=== PATIENT | female | born 1945 | race Caucasian/White ===

== ENCOUNTER 2016-08-08 11:09 | Observation (INO) | payer MEDICARE, OTHER ==
[2016-08-08] MEDS ORDERED: diphenhydrAMINE HCL 50 MG/ML VIAL IM ONE (11:17)
[2016-08-08] MEDS ORDERED: RACEPINEPHRINE HCL 0.5 ML VIAL IH ONE ×2 (11:17)
[2016-08-08] MEDS ORDERED: METHYLPREDNISOLONE SOD SUCC/PF 125 MG/2 ML VIAL IM ONE (11:17)
[2016-08-08] MEDS ORDERED: FAMOTIDINE 10 MG/ML VIAL IV ONE ×4 (11:24→14:06)
--- NOTE | 2016-08-08 11:29 | ERNOTE ---
Allergy Symptoms - ER Date of Service: 08/08/16 Presenting Symptoms: face swelling, skin rash Time Seen by Provider: 08/08/16 11:22 Source: patient Exam Limitations: no limitations Immunizations: IMMUNIZATION HX Immunizations Up to Date No History of Influenza Vaccine No Hx Pneumococcal Vaccination No Allergies/Adverse Reactions: Allergies peanut Allergy (Verified 08/08/16 11:21) Home Medications: HOME MEDICATIONS Metoprolol Succinate 25 mg PO DAILY 08/08/16 [Last Taken Unknown] Triamterene/Hydrochlorothiazid [Triamterene-Hctz 50-25 mg Cap] 0.5 tab PO DAILY 08/08/16 [Last Taken Unknown] - History of Present Illness Narrative: Pt. comes in with c/o lip swelling and hives. Pt. states that she ate peanut butter just prior to arrival. Pt. denies any SOB at this time or chest pain. Pt. denies any chest pain or nausea at this time. Pt. denies any recent illness. Pt. denies any reaction to anything previously. Review of Systems - Review of Systems Constitutional: Present: no symptoms reported. Absent: fever, chills, weakness , fatigue, malaise EYE: Present: no symptoms reported ENT: Present: no symptoms reported Respiratory: Present: no symptoms reported. Absent: shortness of breath, cough , wheezing Cardiology: Present: no symptoms reported. Absent: chest pain, palpitations, edema Gastrointestinal/Abdominal: Present: no symptoms reported. Absent: nausea, vomiting, diarrhea Genitourinary: Present: no symptoms reported Musculoskeletal: Present: no symptoms reported. Absent: back pain, joint pain Skin: Present: no symptoms reported. Absent: rash, change in color Neurological: Present: no symptoms reported. Absent: headache, dizziness/light- headedness, numbness, tingling All Other Systems: All systems neg except as marked - Patient's Past Medical History Patient History - Medical: Diabetes Type 2 Patient History - Cardiac/Respiratory: Hypertension, Hyperlipidemia Patient History - Cancer: No Hx of Cancer Patient History - Surgical Procedures: No surgical history Patient History - Other: None - Social History Living Situations: home Psych History: No pertinent hx Alcohol Use: none Drug Use: none - Immunizations Immunizations Up to Date: No Hx Pneumococcal Vaccination: No History of Influenza Vaccine: No Physical Exam - Physical Exam General Appearance: Present: wd/wn, alert, no apparent distress Eye Exam: Normal inspection: bilateral, PERRL: bilateral, EOMI: bilateral Ears, Nose, Throat: Present: normal pharynx, pharyngeal swelling, other - tongue swelling, and lip and facial swelling grade 3 airway Neck: Present: normal inspection, nontender. Absent: lymphadenopathy (R), lymphadenopathy (L) Respiratory: Present: no respiratory distress, normal breath sounds, no accessory muscle use, chest nontender, expiration (prolonged) Cardiovascular/Chest: Present: regular rate, rhythm, no murmur, normal peripheral pulses Gastrointestinal/Abdominal: Present: normal bowel sounds, nontender, nondistended, soft, no organomegaly Back Exam: Present: normal range of motion, no CVA tenderness, no vertebral tenderness Extremity Exam: Present: non-tender, normal range of motion, no edema Neurological Exam: Present: alert, oriented, normal mood/affect, no motor/ sensory deficits, 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 Absent: pallor ED Progress - Date and Time Seen: Date and Time: 08/08/16 13:29 Pt. became swollen again discussed with Dr Golden and he recommends giving pt. 0.3mg [id number] epinephrine IV. Will do this. 08/08/16 13:47 Pt. became diaphoretic with chest and back pain after giving 0.1 of epinephrine. Instructed nurses to stop this will try solucortef and more benedryl and pepcid. 08/08/16 14:[address] Audrey jeffries and we will admit pt. for IV medications. - Results and Orders Patient's Lab Results:: I have reviewed the patient's lab results. - Vital Signs Patient's Vital Signs:: I have reviewed the patient's vital signs. Vital Signs: Vital Signs 08/08/16 08/08/16 11:14 11:22 Temperature 36.8 C Pulse Rate 94 104 H Respiratory 12 16 Rate Blood Pressure 151/86 O2 Sat by Pulse 94 93 Oximetry - X-Ray X-Ray #1 X-Ray: soft tissue neck Interpretation: Reviewed by me X-ray Comments: thickening of the soft palate X-Ray #2 X-Ray: chest Interpretation: Reviewed by me X-ray Comments: scarring L basilar cannot rule out pleural etioplogy of opacification of L base - Progress/Reassessment Chief Complaint: Allergic Reaction Departure Clinical Impression: Angioedema Qualifiers: Encounter type: initial encounter Qualified Code(s): T78.3XXA - Angioneurotic edema, initial encounter Anaphylactic reaction Qualifiers: Encounter type: initial encounter Qualified Code(s): T78.2XXA - Anaphylactic shock, unspecified, initial encounter - Departure Disposition: [facility] Condition: Serious Referrals: ROQUE NESS [Primary Care Provider] -
[2016-08-08 11:38] LABS: Hematocrit 46.6 % (37.0-47.0); Hemoglobin 15.6 gm/dL (12.5-16.0); Mean Cell Volume 89.4 fl (78-100); Mean Corpuscular Hemoglobin 29.9 pg (27-31); Mean Corpuscular Hgb Conc 33.5 g/dl (32-36); Mean Platelet Volume 9.3 fl (6.0-9.5); Neutrophil # 11.8 K/mm3 (1.3-6.0); Neutrophil % 76.9 % (42-75.0); Platelet Count 352 K/mm3 (150-450); Red Blood Count 5.21 M/mm3 (4.2-5.4); Red Cell Distribution Width 12.6 % (11.5-14.0); White Blood Count 15.3 K/mm3 (4.0-10.5)
[2016-08-08 11:46] LABS: Albumin * 3.5 gm/dl (3.4-5.0); Anion Gap 14.2 mmol/L (6.8-13.8); BUN/Creatinine Ratio 15.8 (9.0-21.6); Bilirubin, Total 1.1 mg/dL (0.0-1.1); Ca. Corrected For Albumin 9.5 mg/dL (8.4-10.2); Calcium * 9.4 mg/dL (7.9-10.9); Carbon Dioxide 28.4 mmol/L (24-32.6); Potassium 3.6 mmol/L (3.4-4.6); Total Protein 7.7 gm/dL (6.2-8.2)
[2016-08-08] MEDS ORDERED: ALBUTEROL SULFATE 2.5 MG/3 ML VIAL.NEB IH ONE (12:55)
[2016-08-08] MEDS ORDERED: EPINEPHrine 0.1 MG/ML DISP.SYRIN IV ONE ×2 (13:14→13:30)
[2016-08-08] MEDS ORDERED: diphenhydrAMINE HCL 50 MG/ML VIAL IV ONE (13:16)
[2016-08-08] MEDS ORDERED: diphenhydrAMINE HCL 50 MG/ML VIAL ONE (13:18)
[2016-08-08] MEDS ORDERED: HYDROCORTISONE SOD SUCCINATE 50 MG/ML VIAL IV ONE (13:46)
[2016-08-08 13:48] LABS: INR 0.99 INR (0.90-1.10); Partial Thrombolplastin Time 23.2 Seconds (24-32); Prothrombin Time (Patient) 10.3 Seconds (9.4-11.4)
[2016-08-08] MEDS ORDERED: ALBUTEROL SULFATE 2.5 MG/0.5 ML VIAL.NEB IH ONE (14:06)
[2016-08-08] MEDS ORDERED: HYDROCORTISONE SOD SUCCINATE 50 MG/ML VIAL ONE (14:07)
[2016-08-08] MEDS ORDERED: METHYLPREDNISOLONE SOD SUCC 30 MG in WATER FOR INJ.,BACTERIOSTATIC 0 ML IV SCH (15:00)
[2016-08-08] MEDS ORDERED: FAMOTIDINE 20 MG in DEXTROSE 5 % IN WATER 100 ML IV SCH ×2 (15:00)
[2016-08-08] MEDS ORDERED: diphenhydrAMINE HCL 50 MG/ML VIAL IV PRN (15:00)
[2016-08-08] MEDS: DILTIAZEM HCL 30 MG TABLET PO SCH (17:47)
[2016-08-08] MEDS: diphenhydrAMINE HCL 50 MG/ML VIAL IV SCH ×2 (17:47→23:26)
--- NOTE | 2016-08-08 20:09 | HP ---
Chief Complaint - Chief Complaint Date of Service: 08/08/16 Time of Service: 19:57 Chief Complaint: Hives and Angioedema History of Present Illness: This 75 y/o woman had her usual breakfast this morning of Jiffy peanut butter on toast with coffee about 6:30 or 7:00. About one hour later she began to have itchy hives on her face. She was unable to reach her daughters by phone, and by the time she was dressed, the hives were everywhere. She then drove herself to the [facility] ER. By the time she reached the ER, she also had swollen lips and tongue and dyspnea. She was vigorously treated in the ER, and improved , but then got worse again. For this reason, she was admitted to the hospital. She does not use NSAIDs or ASA. She has been on her current BP meds for two years. She had hives many years ago one time, but remembers nothing about it. For the last few years, she has had nasal congestion and rhinorrhea all year round, worse in the spring. She denies such symptoms as a child, but DOES have a transverse nasal crease, so I suspect she had nasal allergy symptoms even then , but didn't perceive them. She is now feeling back to normal, except for dry lips. No one else in her family has a history of hives. - Patient's Past Medical History Patient History - Medical: Diabetes Type 2 Patient History - Cardiac/Respiratory: Hypertension, Hyperlipidemia Patient History - Cancer: No Hx of Cancer Patient History - Surgical Procedures: No surgical history Patient History - Other: None - Family History Father Family History - Cardiac/Respiratory: Myocardial Infarction - Social History Living Situations: home Psych History: No pertinent hx Smoking Status: Never smoker Have you smoked in the past 12 months: No Do you dip or chew tobacco: No Patient requests Smoking Cessation Consult: No Initiate information on Smoking Cessation: No Alcohol Use: none Drug Use: none - Immunizations Immunizations Up to Date: No Hx Pneumococcal Vaccination: No History of Influenza Vaccine: No Review Of Systems (GEN) - Review of Systems Generalized/Overall Review: Present: No Symptoms Reported EENTM: Present: Other - dry lips Respiratory: Present: No Symptoms Reported Cardiac: Present: No Symptoms Reported Abdominal: Present: No Symptoms Reported Genitourinary: Present: No Symptoms Reported Musculoskeletal: Present: No Symptoms Reported Neurological: Present: No Symptoms Reported Skin: Present: No Symptoms Reported Endocrine: Present: No Symptoms Reported Misc: All systems neg except as marked Immunizations: IMMUNIZATION HX Immunizations Up to Date No History of Influenza Vaccine No Hx Pneumococcal Vaccination No Allergies/Adverse Reactions: Allergies Allergy/AdvReac Type Severity Reaction Status Date / Time peanut Allergy Verified 08/08/16 11:21 Home Medications: HOME MEDICATIONS Metoprolol Succinate 25 mg PO DAILY 08/08/16 [Last Taken Unknown] Triamterene/Hydrochlorothiazid [Triamterene-Hctz 50-25 mg Cap] 0.5 tab PO DAILY 08/08/16 [Last Taken Unknown] Exam - Exam Vital Signs: Vital Signs - Last Taken Selected Entries 08/08/16 08/08/16 11:14 19:24 Temperature 36.8 C 36.4 C L Temperature Tympanic Oral Source Pulse Rate 94 99 Pulse Rhythm Regular Pulse Strength Normal Respiratory 12 16 Rate Respiratory Normal Depth Respiratory Normal Effort Non-Labored Respiratory Normal Pattern Blood Pressure 151/86 120/70 Blood Pressure Sitting Supine Position O2 Sat by Pulse 94 91 Oximetry Oxygen Delivery Room Air Room Air Method Constitutional: Present: Alert, Oriented x3, Cooperative, Well developed, No distress, Obese ENT Exam: Present: normal ENT inspection, hearing grossly normal, pharynx normal , TMs normal Eye Exam: bilateral eye: normal inspection, PERRL, EOMI Neck: Present: normal inspection Back Exam: Present: normal inspection Respiratory: Present: lungs clear, no respiratory distress Cardiovascular/Chest: Present: regular rate, rhythm, no murmur Abdomen: Present: Normal bowel sounds, soft, nontender, nondistended, no rebound tenderness, no hepatospenomegaly, no masses, obese Extremity: Present: normal inspection, no pedal edema Skin Exam: Present: normal color, warm/dry, no cyanosis Neurologic: Present: alert, normal mood/affect, oriented x 3 Appearance: Present: appropriate appearance, appropriate insight, neat, no memory impairment Eye contact: Present: cooperative, good eye contact, normal speech Thoughts: Present: normal thought pattern Diagnostic Studies: Laboratory Results WBC 15.3 K/mm3 (4.0-10.5) H 08/08/16 11:27 RBC 5.21 M/mm3 (4.2-5.4) 08/08/16 11:27 Hgb 15.6 gm/dL (12.5-16.0) 08/08/16 11:27 Hct 46.6 % (37.0-47.0) 08/08/16 11:27 MCV 89.4 fl (78-100) 08/08/16 11:27 MCH 29.9 pg (27-31) 08/08/16 11:27 MCHC 33.5 g/dl (32-36) 08/08/16 11:27 RDW 12.6 % (11.5-14.0) 08/08/16 11:27 Plt Count 352 K/mm3 (150-450) 08/08/16 11:27 MPV 9.3 fl (6.0-9.5) 08/08/16 11:27 Immature Gran % (Auto) 0.40 % (0.001-0.429) 08/08/16 11:27 Immature Gran # (Auto) 0.06 K/mm3 (0.000-0.0310) H 08/08/16 11:27 Neutrophils % 76.9 % (42-75.0) H 08/08/16 11:27 Lymphocytes % 16.4 % (20-51) L 08/08/16 11:27 Monocytes % 5.9 % (0.0-9) 08/08/16 11:27 Eosinophils % 0.1 % (0.0-3.0) 08/08/16 11: Basophils % 0.3 % (0.0-1.0) 08/08/16 11: Nucleated RBC % 0.0 k/mm3 (0-1) 08/08/16 11:27 Neutrophils # 11.8 K/mm3 (1.3-6.0) H 08/08/16 11:27 Lymphocytes # 2.5 k/mm3 (1.5-3.5) 08/08/16 11: Monocytes # 0.9 k/mm3 (0.0-1.0) 08/08/16 11: Eosinophils # 0.0 k/mm3 (0.0-0.7) 08/08/16 11: Absolute Basophils 0.0 k/mm3 (0.0-0.1) 08/08/16 11: ESR 9 mm/hr (0-15) 08/08/16 14:50 PT 10.3 Seconds (9.4-11.4) 08/08/16 11:27 INR (Anticoag Therapy) 0.99 INR (0.90-1.10) 08/08/16 11:27 PTT (Douglas) 23.2 Seconds (24-32) L 08/08/16 11:27 Sodium 141 mmol/L (132-142) 08/08/16 11:27 Plasma Sodium 143 mmol/L (130-142) H 08/08/16 11:27 Potassium 3.6 mmol/L (3.4-4.6) 08/08/16 11:27 Chloride 102 mmol/L (97-106) 08/08/16 11:27 Carbon Dioxide 28.4 mmol/L (24-32.6) 08/08/16 11:27 Anion Gap 14.2 mmol/L (6.8-13.8) H 08/08/16 11:27 BUN 16 mg/dL (3-23) 08/08/16 11:27 Creatinine 1.01 mg/dL (0.4-1.4) 08/08/16 11:27 Est GFR (Non-Af Amer) 57 mL/min (60-130) L 08/08/16 11:27 BUN/Creatinine Ratio 15.8 (9.0-21.6) 08/08/16 11:27 Random Glucose 207 mg/dL (70-110) H 08/08/16 11:27 Calcium 9.4 mg/dL (7.9-10.9) 08/08/16 11:27 Calcium Adj for Albumin 9.5 mg/dL (8.4-10.2) 08/08/16 11:27 Total Bilirubin 1.1 mg/dL (0.0-1.1) 08/08/16 11:27 AST 312 U/L (0-48) H 08/08/16 11:27 ALT 154 U/L (19-67) H 08/08/16 11:27 Alkaline Phosphatase 78 U/L (50-170) 08/08/16 11:27 Troponin I Less than 0.017 ng/ml (0.00-0.10) 08/08/16 11:27 C-Reactive Prot, Quant Less than 0.2 mg/dL (0.0-0.9) 08/08/16 11:27 Total Protein 7.7 gm/dL (6.2-8.2) 08/08/16 11:27 Albumin 3.5 gm/dl (3.4-5.0) 08/08/16 11:27 Assessment/Plan - Narrative Narrative: Stop current BP meds. Diltiazem instead. IV benadryl, pepcid and solumedrol. Probably home tomorrow. Doubt the issue was peanut butter. Will need an epipen at home. Estimated stay one midnight. - Assessment/Plan (1) Hypertension Problem: Chronic Qualifiers: Hypertension type: essential hypertension Qualified Code(s): I10 - Essential (primary) hypertension (2) Diabetes Problem: Chronic Qualifiers: Diabetes mellitus type: type 2 (3) Allergic rhinitis Problem: Chronic Qualifiers: Allergic rhinitis seasonality: seasonal (4) Anaphylactic reaction Problem: Acute Qualifiers: Encounter type: initial encounter Qualified Code(s): T78.2XXA - Anaphylactic shock, unspecified, initial encounter
[2016-08-08] MEDS: METHYLPREDNISOLONE SOD SUCC 30 MG in WATER FOR INJ.,BACTERIOSTATIC 0 ML IV SCH (20:40)
[2016-08-08] MEDS: FAMOTIDINE 20 MG in DEXTROSE 5 % IN WATER 100 ML IV SCH ×2 (20:42)
[2016-08-08] MEDS: NYSTATIN 15 APPL BTL TP SCH (21:00)
[2016-08-09] MEDS: FAMOTIDINE 20 MG in DEXTROSE 5 % IN WATER 100 ML IV SCH ×4 (01:44→07:24)
[2016-08-09] MEDS: METHYLPREDNISOLONE SOD SUCC 30 MG in WATER FOR INJ.,BACTERIOSTATIC 0 ML IV SCH ×2 (01:44→07:20)
[2016-08-09] MEDS: DILTIAZEM HCL 30 MG TABLET PO SCH ×2 (01:45→09:13)
[2016-08-09] MEDS: diphenhydrAMINE HCL 50 MG/ML VIAL IV SCH (05:22)
[2016-08-09 05:52] LABS: Hematocrit 44.7 % (37.0-47.0); Hemoglobin 15.2 gm/dL (12.5-16.0); Mean Cell Volume 89.2 fl (78-100); Mean Corpuscular Hemoglobin 30.3 pg (27-31); Mean Platelet Volume 9.3 fl (6.0-9.5); Neutrophil # 8.5 K/mm3 (1.3-6.0); Neutrophil % 84.5 % (42-75.0); Platelet Count 333 K/mm3 (150-450); Red Blood Count 5.01 M/mm3 (4.2-5.4); Red Cell Distribution Width 12.6 % (11.5-14.0)
[2016-08-09 06:03] LABS: Hemoglobin A1C 6.5 % (4.00-6.0)
[2016-08-09 06:15] LABS: Albumin * 3.5 gm/dl (3.4-5.0); BUN/Creatinine Ratio 13.9 (9.0-21.6); Bilirubin Direct 0.2 mg/dL (0.0-0.3); Bilirubin, Total 0.8 mg/dL (0.0-1.1); Bilirubin,Indirect 0.6 mg/dL (0.1-0.7); Calcium * 9.5 mg/dL (7.9-10.9); Carbon Dioxide 26.9 mmol/L (24-32.6); Estimated Creat Clear 42.8; Potassium 3.9 mmol/L (3.4-4.6); T4 Free * 0.8 ng/dL (0.76-1.46); TSH * 1.874 uIU/mL (0.358-3.74); Total Protein 7.7 gm/dL (6.2-8.2)
[2016-08-09 06:49] VITALS: BP 134/64
--- NOTE | 2016-08-09 08:09 | DS ---
(1) Hypertension Problem: Chronic Qualifiers: Hypertension type: essential hypertension Qualified Code(s): I10 - Essential (primary) hypertension (2) Diabetes Problem: Chronic Qualifiers: Diabetes mellitus type: type 2 (3) Allergic rhinitis Problem: Chronic Qualifiers: Allergic rhinitis seasonality: seasonal (4) Anaphylactic reaction Problem: Resolved Qualifiers: Encounter type: initial encounter Qualified Code(s): T78.2XXA - Anaphylactic shock, unspecified, initial encounter (5) Elevated liver enzymes Problem: Acute Description of Stay: Remained hive and angioedema free while here. BP seems well controlled with BP medication switch. Avoid the the diuretic in the future, as it MAY be causative. Avoid beta blockers, because they interfere with the epinephrine treatment for anaphylaxis. Elevated liver enaymes cause is unknown at the present time. Procedures Performed: none Discharge Disposition: Home self care Disposition: Home self-care Condition: Good Discharge Activity: Activity as tolerated Discharge Diet: Consistent carbs Referrals: ROQUE NESS [Primary Care Provider] - Problem Oriented Discharge Instructions to Patient/Family: Hives, [id number] , Angioedema, [id number] Additional Patient Instructions (free text): Followup with your doctor in 3-4 days. Prescriptions (Any new or edited meds): Diltiazem HCl [Cardizem] 30 mg PO TID #90 tablet EPINEPHrine [Epipen 2-Lee] 0.3 mg IJ ONCE #1 auto.injct Famotidine [Pepcid] 20 mg PO QID #20 tablet diphenhydrAMINE HCL [Benadryl] 50 mg PO QID #20 capsule predniSONE [Deltasone] 20 mg PO QID #20 tablet Complete Home Medications List: Complete Home Medication List: Diltiazem HCl [Cardizem] 30 mg PO TID #90 tablet 08/09/16 EPINEPHrine [Epipen 2-Lee] 0.3 mg IJ ONCE #1 auto.injct 08/09/16 Famotidine [Pepcid] 20 mg PO QID #20 tablet 08/09/16 Nystatin [Mycostatin Powder] 1 appl TP BID btl 08/09/16 diphenhydrAMINE HCL [Benadryl] 50 mg PO QID #20 capsule 08/09/16 predniSONE [Deltasone] 20 mg PO QID #20 tablet 08/09/16
[2016-08-09] MEDS: NYSTATIN 15 APPL BTL TP SCH (09:14)
[2016-08-10 13:28] LABS: Hepatitis C Antibody NON-REACTIVE (NON-REACTIVE); Hepatitis Panel Confirmation DNR
[2016-08-10 13:44] LABS: Hepatitis A IgM Antibody NON-REACTIVE (NON-REACTIVE); Hepatitis B Surface Antigen NON-REACTIVE (NON-REACTIVE)
[2016-08-12 11:22] LABS: Peanut IgE <0.10 kU/L
[2016-08-13 04:39] LABS: Thyroglobulin Antibodies 106 IU/mL (< or = 1); Thyroid Peroxidase Antibodies 151 IU/mL (<9)
== END 2016-08-09 09:50 | disposition home or self-care (01) ==
LOC: ER 11:09 → MS 14:52
PROVIDERS: ADMIT Allergy & Immunology; ATTEND Allergy & Immunology
DX: T88.6XXA Anaphylactic reaction due to adverse effect of correct drug or medicament properly administered, initial encounter (principal); L50.0 Allergic urticaria; I10 Essential (primary) hypertension; E03.9 Hypothyroidism, unspecified; E11.8 Type 2 diabetes mellitus with unspecified complications; J30.2 Other seasonal allergic rhinitis; R74.8 Abnormal levels of other serum enzymes; E78.5 Hyperlipidemia, unspecified
CPT/HCPCS: 36415; 70360; 71020; 80048; 80053; 80074; 80076; 83036; 84439; 84443; 84484; 85025; 85610; 85652; 85730; 86003; 86140; 86376; 86800; 93005; 96365; 96366; 96372; 96375; 96376; 99284; G0378